=== PATIENT | male | born 1985 | race Two or more races ===

== ENCOUNTER 2025-10-08 19:30 | Emergency (ER) | payer BC ==
[~2025-10-08] VITALS: Ht 188 cm; Wt 113.4 kg
[2025-10-08 20:37] VITALS: TEMP 98.4
[2025-10-08 20:54] VITALS: BP 140/89; O2SAT 99
[2025-10-08 21:17] LABS: PLATELET COUNT (AUTO) 183 K/uL (150-450); RED BLOOD CELL COUNT(AUTO) 4.59 MIL/uL (4.5-6.0); RED CELL DISTRIBUTION WIDTH 13.4 % (11.5-15.0); WHITE BLOOD COUNT (AUTO) 6.2 K/uL (4.3-11.0)
[2025-10-08 21:25] LABS: CALCIUM, SERUM 9.2 mg/dL (8.5-10.1); CREATININE 0.9 mg/dL (0.6-1.3); SODIUM SERUM 143 mmol/L (136-145); UREA NITROGEN, BLOOD 11 mg/dL (7-18)
== END 2025-10-08 21:21 | disposition home or self-care (01) ==
LOC: ER 19:33
DX: R07.89 Other chest pain (principal); Z60.2 Problems related to living alone
CPT/HCPCS: 36415; 71045-TC; 80048-TC; 84484-TC; 85025-TC